=== PATIENT | female | born 1955 | race Caucasian/White ===

== ENCOUNTER → 2020-06-11 | Outpatient (CLI) | payer OTHER ==
[~2020-06-11] MED LIST: CITA20 PO; LORA1 PO; METO25ER PO; NITR100CA PO; PHENA100 PO
== END | disposition home or self-care (01) ==
LOC: LAB EV 12:14 → LAB SHORT 12:14
DX: N39.0 Urinary tract infection, site not specified (principal)
CPT/HCPCS: 87086

== ENCOUNTER 2021-05-10 11:56 | Day surgery (SDC) | payer MEDICARE, OTHER ==
[~2021-05-10] VITALS: Ht 175.3 cm; Wt 80.0 kg
--- NOTE | 2021-05-10 12:25 | NUR ---
05/10/21 1225 JEANNIE BURLESON TETRACAINE DROP INSTILLED AT 1222, PLEDGETT INSERTED AT 1223
--- NOTE | 2021-05-10 14:32 | NUR ---
05/10/21 1432 Pat Ricardo PT AWAKE, ALERT. PT TRANSFERED FROM BED TO CHAIR. PT DENIES ANY PAIN OR NAUSEA.VS WNL.
== END 2021-05-10 14:44 | disposition home or self-care (01) ==
LOC: ORSCSDS 11:56
PROVIDERS: Ophthalmology
PROC: 08RJ3JZ Replacement of Right Lens with Synthetic Substitute, Percutaneous Approach (ICD-10-PCS; principal; 2021-05-10 13:30)
DX: H25.11 Age-related nuclear cataract, right eye (principal); I34.1 Nonrheumatic mitral (valve) prolapse; Z79.899 Other long term (current) drug therapy
CPT/HCPCS: J2001; J2250; J3010; J3301; J7040; V2632

== ENCOUNTER 2023-01-23 08:18 | Day surgery (SDC) | payer MEDICARE, OTHER ==
[~2023-01-23] VITALS: Ht 175.3 cm; Wt 77.7 kg
--- NOTE | 2023-01-23 09:08 | NUR ---
01/23/23 0908 Merced Johnston LEFT EYE IDENTIFIED CORRECT EYE FOR PROCEDURE PER PT AND CONSENT. TETRICANE PLACED IN LEFT EYE AT 0850. PLEGET FOAM PLACED IN LEFT EYE AT 0851. PT TOLERATED WELL. CALL LIGHT PLACED IN PT HAND.
[2023-01-23 09:47] VITALS: BP 114/62
--- NOTE | 2023-01-23 10:02 | NUR ---
01/23/23 1002 Shelbi Schmitt IV REMOVED CANNULA INTACT, PT VENTURA WELL. IV SITE WNL
== END 2023-01-23 10:00 | disposition home or self-care (01) ==
LOC: ORSCSDS 08:18
PROVIDERS: Ophthalmology
PROC: 08RK3JZ Replacement of Left Lens with Synthetic Substitute, Percutaneous Approach (ICD-10-PCS; principal; 2023-01-23 09:30)
DX: H25.12 Age-related nuclear cataract, left eye (principal); Z96.1 Presence of intraocular lens; E78.5 Hyperlipidemia, unspecified; I10 Essential (primary) hypertension; E66.9 Obesity, unspecified; Z68.25 Body mass index [BMI] 25.0-25.9, adult; Z79.899 Other long term (current) drug therapy
CPT/HCPCS: J2250; J3010; J3301; J7040; V2632

== ENCOUNTER 2023-12-06 07:10 | Emergency (ER) | payer MEDICARE, OTHER ==
[~2023-12-06] VITALS: Ht 172.7 cm; Wt 72.6 kg
[2023-12-06 07:13] VITALS: BP 171/128
[2023-12-06] MEDS ORDERED: INDO50 (07:17)
[2023-12-06 07:32] LABS: BASOPHILS ABSOLUTE AUTO 0.05 K/mm3 (0.00-0.23); BASOPHILS PERCENT AUTO 1 % (0-2); EOSINOPHILS PERCENT AUTO 0 % (0-6); Hematocrit 37.1 % (33.0-51.0); Hemoglobin 12.8 g/dL (11.5-16.0); IMMATURE GRAN ABSOLUTE AUTO 0.01 K/mm3 (0.00-0.10); IMMATURE GRAN PERCENT AUTO 0 % (0-1); LYMPHOCYTES PERCENT AUTO 55 % (21-46); MONOCYTES ABSOLUTE AUTO 0.33 K/mm3 (0.16-1.47); MONOCYTES PERCENT AUTO 7 % (4-13); Mean Corpuscular HGB 31.8 pg (26.0-34.0); Mean Corpuscular HGB Conc 34.5 g/dL (31.5-36.5); Mean Corpuscular Volume 92 fL (80-100); NEUTROPHILS ABSOLUTE AUTO 1.73 K/mm3 (1.96-9.15); NEUTROPHILS PERCENT AUTO 37 % (41-73); Platelet Count 176 K/mm3 (150-400); RDW Coefficient Variation 12.5 % (11.7-14.2); Red Blood Cell Count 4.02 M/mm3 (3.80-5.20); White Blood Cell Count 4.72 K/mm3 (4.00-11.30)
[2023-12-06 08:01] LABS: Albumin, Blood 4.1 g/dL (3.4-5.0); Albumin/Globulin Ratio 1.1 (0.8-1.8); Bilirubin, Total 0.7 mg/dL (0.1-1.0); Bun/Creatinine Ratio 20.5 (12.0-20.0); Calcium, Blood 9.2 mg/dL (8.5-10.1); Creatinine, Blood 0.83 mg/dL (0.40-1.00); Globulin, Blood 3.6 g/dL (2.2-4.0); Total Protein, Blood 7.7 g/dL (6.4-8.2)
== END 2023-12-06 09:39 | disposition left against medical advice (07) ==
LOC: ER 07:10
PROVIDERS: Emergency Medicine
DX: R42 Dizziness and giddiness (principal); R11.0 Nausea; R00.2 Palpitations; R55 Syncope and collapse; R06.02 Shortness of breath; Z53.29 Procedure and treatment not carried out because of patient's decision for other reasons
CPT/HCPCS: 71046; 80053; 84484; 85025; 93005; 93010; 99282-25